=== PATIENT | female | born 1980 | race Caucasian/White ===

== ENCOUNTER 2017-05-30 17:25 | Inpatient (IN) | payer OTHER ==
[2017-05-30] MEDS ORDERED: Morphine 1 mg/ml preservative-free Inj(Duramorph) ONE (17:52)
[2017-05-30] MEDS ORDERED: Sodium Citrate/Citric Acid 15 ml Sol PO ONE (17:52)
[2017-05-30] MEDS ORDERED: ePHEDrine 50 mg/ml Inj ONE (17:52)
[2017-05-30] MEDS ORDERED: cefOXitin IV 2 gm in Dextrose 2 GM/50 ML BAG IVPB ONE ×2 (18:03→19:00)
[2017-05-30] MEDS ORDERED: Sodium Citrate/Citric Acid 15 ml Sol ONE (18:05)
[2017-05-30] MEDS ORDERED: cefOXitin IV 2 gm in Saline 2 GM/50 ML BAG IVPB ONE (18:06)
[2017-05-30] MEDS ORDERED: Oxytocin 20 units in LR 2,000 ML IV ONE (18:06)
[2017-05-30 18:07] LABS: BASO % 0.2 % (0.0-2.0); EOS # 0.1 K/uL (0.0-0.7); EOS % 0.4 % (0.0-4.0); HEMOGLOBIN 11.3 g/dL (11.0-16.0); LYMPH # 3.4 K/uL (1.0-4.3); LYMPH % 23.3 % (20.0-40.0); MEAN CORPUSCULAR HEMOGLOBIN 27.6 pg (27.0-31.0); MEAN CORPUSCULAR HGB CONC 32.8 g/dL (33.0-37.0); MEAN PLATELET VOLUME 9.8 fL (7.2-11.7); MONO # 0.9 K/uL (0.0-0.8); MONO % 6.5 % (0.0-10.0); NEUT # 10.1 K/uL (1.8-7.0); NEUT % 69.6 % (50.0-75.0); RBC 4.09 Mil/uL (3.80-5.20); RED CELL DISTRIBUTION WIDTH 16.7 % (11.5-14.5); WHITE BLOOD COUNT 14.5 K/uL (4.8-10.8)
[2017-05-30 18:13] LABS: SQUAMOUS EPITHIAL 1 /hpf (0-5); URINE BACTERIA RARE (<OCC); URINE BILIRUBIN NEGATIVE (NEGATIVE); URINE BLOOD NEGATIVE (NEGATIVE); URINE CLARITY Clear (Clear); URINE COLOR Yellow (YELLOW); URINE GLUCOSE (UA) NORMAL (Normal); URINE LEUKOCYTE ESTERASE NEG Leu/uL (Negative); URINE PROTEIN NEGATIVE (NEGATIVE); URINE UROBILINOGEN NORMAL mg/dL (0.2-1.0)
[2017-05-30 18:22] LABS: ALB/GLOB RATIO 0.8 (1.0-2.1); ALBUMIN 3.7 g/dL (3.5-5.0); CALCIUM 8.8 mg/dl (8.6-10.4); GFR AFRICAN-AMERICAN > 60; GFR NON-AFRICAN AMERICAN > 60
[2017-05-30 18:24] LABS: ALT/SGPT 21 U/L (9-52); AST/SGOT 36 U/L (14-36); BLOOD UREA NITROGEN 9 mg/dL (7-17)
[2017-05-30] MEDS ORDERED: Dextrose 5%/Lactated Ringer's 1,000 ML IV SCH (18:30)
[2017-05-30 18:51] LABS: HEPATITIS B SURFACE AG Negative (NEGATIVE)
--- NOTE | 2017-05-30 19:11 | OBADHP ---
Datetime: 05/30/2017 19:02 Admit Comment, IP Provider: chief complaint-plvic pressure and contractions HPI 36 y/o at 37.4 wga with c/o pelvic pressure and contractions.patient with c/o bleeding last night and again this am Patient denies loss of fluid course complicated by AMA PMH hypothyrodiism PSH csectionx2 OBGYN HX ; csectionx2; vbacx1 Social hx denies tobacco,alochol or illicit drug use Exam -see exam section A/P 36 y/o at 37.4wga in labor.Hx of 2 previous csection -admit -see orders -proceed to or as soon as OR ready Pelvic Type - PN: Adequate Extremities - PN: Normal Abdomen - PN: Normal Back - PN: Normal Lungs - PN: Normal Heart - PN: Normal Neurologic - PN: Normal General - PN: Normal Contraction Comments Provider: irregular ctx Gestation - Est Wks by US: 37.4 IP Hx Assessment: The History has been Reviewed and is Current Vital Signs Provider: Reviewed; Within Normal Limits IP Chief Complaint: Uterine contractions FHR Category Provider Fetus A: Category I Dilatation, Provider: 1 Effacement, Provider: 50 Station, Provider: -3 Genitourinary Exam: Normal DTRs - PN: Normal EGA AdmitDate IP: 37.4 IP Adm Impression: Term, intrauterine IP Admit Plan: Admit to unit
[2017-05-30] MEDS ORDERED: Oxycodone/Acetaminophen 5/325 mg Tab PO PRN ×2 (21:07)
--- NOTE | 2017-05-30 21:22 | OBDS ---
DELIVERY PERSONNEL Delivery Doctor: Laurent Fall MD Scrub Nurse: Sandra Gonzalez OBT Bd Special Education Teacher: Yana Millard RN Anesthesiologist: Jane Razo MD MATERNAL INFORMATION Delivery Anesthesia: Spinal Medications in Delivery: PITOCIN 20 UNITS Estimated Blood Loss (ml): 700 Placenta Cultured: No Maternal Complications: None RN Comments: previous c/s times 3 Provider Comments: repeat csection done see op report no complications LABOR SUMMARY EDC: 06/16/2017 00:00 No. Babies in Womb: 1 Attempted: No Labor Anesthesia: None LABOR INFORMATION Reason for Induction: Not Applicable Oxytocin: N/A Group B Beta Strep: Not Done Antibiotics # of Doses: 1 Antibiotics Time of Last Dose: 1909 Steroids Given: None Reason Steroids Not Administered: Not Applicable MEMBRANES Membranes Rupture Method: Artificial Rupture of Membranes: 05/30/2017 20:04 Length of Rupture (hrs): 0.00 Amniotic Fluid Color: Clear Amniotic Fluid Amount: Moderate Amniotic Fluid Odor: Normal STAGES OF LABOR Stage 3 hrs: 0 Stage 3 min: 1 VAGINAL DELIVERY Episiotomy: None CSECTION DELIVERY Primary Indication: > 2 Previous CSections Other Secondary Indication: early labor CSection Urgency: Elective CSection Incidence: Repeat Labor: Labor Elective: Elective CSection Incision: Lower Uterine Transverse Uterine Closure: Double-layer closure BABY A INFORMATION Infant Delivery Date/Time: 05/30/2017 20:04 Method of Delivery: Born in Route : No : N/A Forceps: N/A Vacuum Extraction: N/A Shoulder Dystocia : No SHOULDER DYSTOCIA BABY A Infant Delivery Date/Time: 05/30/2017 20:04 PRESENTATION/POSITION BABY A Presentation: Cephalic Cephalic Presentation: Vertex Vertex Position: Left Occipital Anterior Breech Presentation: N/A PLACENTA INFORMATION BABY A Placenta Delivery Time : 05/30/2017 20:05 Placenta Method of Delivery: Manual Removal Placenta Status: Delivered SCORES BABY A Heart Rate 1 min: >100 bpm Resp Effort 1 min: Good Cry Reflex Irritability 1 min: Cough or Sneeze or Pulls Away Muscle Tone 1 min: Active Motion Color 1 min: Body Cornlea, Extremities Blue SCORE 1 MIN: 9 Heart Rate 5 min: >100 bpm Resp Effort 5 min: Good Cry Reflex Irritability 5 min: Cough or Sneeze or Pulls Away Muscle Tone 5 min: Active Motion Color 5 min: Body Cornlea, Extremities Blue SCORE 5 MIN: 9 INFANT INFORMATION BABY A Gestational Age at Delivery: 38.0 Gestational Status: Term Outcome : Liveborn Condition : Stable Sex: Female IDENTIFICATION/MEDS BABY A ID Band Number: [id number] ID Band Location: Left Leg; Left Arm Sensor Applied: Yes Sensor Number: [id number] Sensor Location : Cord Clamp Erythromycin Given: Given Both Eyes WEIGHT/LENGTH BABY A Birthweight (gms): 2740 Infant Weight (lb): 6 Weight (oz): 1 Length Inches: 18.00 Length cms: 45.7 CORD INFORMATION BABY A No. Cord Vessels: 3 Nuchal Cord : N/A Cord Blood Taken: No Infant Suction: None ASSESSMENT BABY A Infant Complications: None Physical Findings at Delivery: Within Normal Limits Infant Respirations: Appears Normal Tool Keeper/ALS Called : No Infant Care By: Dr. Carias Transferred To: Nursery
[2017-05-30] MEDS ORDERED: DiphenhydrAMINE 50 mg/ml Inj IVP PRN (21:25)
--- NOTE | 2017-05-31 03:12 | OP ---
PROCEDURE DATE: 05/30/2017 PREOPERATIVE DIAGNOSES: 1. Previous section, in labor. 2. Term intrauterine . POSTOPERATIVE DIAGNOSES: 1. Previous section, in labor. 2. Term intrauterine . PROCEDURE PERFORMED: Repeat low transverse section. SURGEON: Frank Fall MD AUDIOVISUAL TECH: Dr. Ilana Arroyo. TYPE OF ANESTHESIA: Spinal. ANESTHESIOLOGIST: Dr. Razo. COMPLICATIONS: None. ESTIMATED BLOOD LOSS: 700 mL. FINDINGS: A female infant, in vertex presentation with Apgars of 9 at 1 minute of life and 9 at 5 minutes of life. Normal tubes and ovaries bilaterally. SPECIMEN: Placenta and cord blood. PROCEDURE IN DETAIL: After informed consent was obtained, the patient was taken to the operating room, where spinal anesthesia was administered by the anesthesia team. She was thereafter placed in dorsal supine position with a leftward tilt. A Allred catheter was confirmed to be draining clear urine. The patient was then prepped and draped in the usual sterile manner. In the previous Pfannenstiel skin incision scar, an incision was made with the help of the scalpel, and this was carried down to the underlying area of the fascia with the help of the Bovie. The fascia was then incised in the midline and the incision extended laterally with the help of Bovie as well. The superior aspect of the fascial incision was grasped with Brianna clamps to elevate it and the underlying rectus muscle dissected off. Attention was then turned to the inferior aspect of the fascial incision, which in a similar fashion was grasped with Brianna clamp to elevate it and the underlying rectus muscle was dissected off. The rectus muscle was in the midline. Bleeding was noted from the rectus muscle and this was suture ligated with 2-0 chromic. Adequate hemostasis was noted. The peritoneum was then picked up with hemostatic clamps and entered sharply with Metzenbaum scissors. The peritoneal incision was extended superiorly and inferiorly with good visualization of the bladder. The bladder blade was then inserted and the vesicouterine peritoneum was identified. A transverse incision was made over the vesicouterine peritoneum with the help of Metzenbaum scissors and by picking it up with pickups. The incision was extended laterally and a bladder flap was created sharply. A bladder blade was then reinserted and the lower uterine segment identified. A transverse incision was made over the lower uterine segment. Incision was bluntly stretched. The membranes were ruptured and the infant's head was then delivered atraumatically, followed by the body and the shoulders. The cord was then clamped and cut and the was handed over to the waiting digital watch assembler. Cord blood was collected. The placenta was then manually removed. The uterus was exteriorized and was cleared of all clots and debris. The uterine incision was repaired with 0 Polysorb in a running locked fashion. A second layer of same suture was used to imbricate the first layer and also to obtain hemostasis. Adequate hemostasis was noted from the uterine incision repair site. A small 5 mm x 5 mm hematoma was noted near the left uterine incision repair site, and this was observed for 5 minutes and it was not noted to be expanded. Thereafter, the cul-de-sac and the pelvis were irrigated and suctioned. The uterus was returned to the patient's abdomen. Once again, the previously noted hematoma was inspected and found to be of thge same size Adequate hemostasis was noted from the uterine incision repair site. Interceed was thereafter placed over the uterine incision repair site. The peritoneum was thereafter closed with 2-0 Polysorb in a running fashion. The muscle layer was reapproximated with 2-0 Polysorb via mattress suture. The fascia was closed with 0-Vicryl in a running fashion. The subcutaneous tissue was reapproximated with 2-0 Polysorb in a running fashion. The skin was closed with 3-0 Monocryl in a subcuticular manner. Steri-Strip was thereafter applied. The patient was thereafter cleaned and taken to the recovery room in stable condition. The Allred catheter was left in situ for postop bladder drainage. The sponge, lap, needle, and instrument counts were correct x3 as reported to me. Frank Fall MD MADDIE
[2017-05-31] MEDS ORDERED: cefOXitin IV 2 gm in Saline 2 GM/50 ML BAG IVPB ONE (04:12)
[2017-05-31] MEDS: cefOXitin IV 2 gm in Dextrose 2 GM/50 ML BAG IVPB SCH ×2 (04:17→14:52)
[2017-05-31] MEDS: Simethicone 80 mg Chewtab PO SCH ×4 (10:19→21:56)
[2017-05-31 11:29] LABS: BASO % 0.2 % (0.0-2.0); EOS # 0.1 K/uL (0.0-0.7); EOS % 0.8 % (0.0-4.0); LYMPH # 1.5 K/uL (1.0-4.3); LYMPH % 11.6 % (20.0-40.0); MEAN CELL VOLUME 84.5 fL (81.0-99.0); MEAN CORPUSCULAR HEMOGLOBIN 27.8 pg (27.0-31.0); MEAN CORPUSCULAR HGB CONC 32.9 g/dL (33.0-37.0); MEAN PLATELET VOLUME 10.1 fL (7.2-11.7); MONO # 0.6 K/uL (0.0-0.8); MONO % 4.8 % (0.0-10.0); NEUT # 10.8 K/uL (1.8-7.0); NEUT % 82.6 % (50.0-75.0); RBC 3.6 Mil/uL (3.80-5.20); RED CELL DISTRIBUTION WIDTH 16.3 % (11.5-14.5)
[2017-06-01 00:18] VITALS: O2SAT 98
[2017-06-01] MEDS: Simethicone 80 mg Chewtab PO SCH ×5 (09:07→21:34)
--- NOTE | 2017-06-01 21:06 | OBDCSUM ---
Datetime: 06/01/2017 21:04 Discharged to, Provider: Home Follow up at, Provider: Dr SKINNER Disch Instr Diet: Regular Discharge Instructions, Provider: Routine instructions given Discharge Diagnosis, Provider: Term Delivered Discharge Time: 07/02/2017 09:00 Follow up in weeks, Provider: 2 WEEKS Disch Referrals: None Disch Activity Restrictions: No exercising; No lifting; No driving; No sexual activity; Nothing in v [facility] [place] [facility], tampons, douche Discharge Comment, Provider: CALL THE OFFICVE IF YOU HAVE FEVER, SEVERE PAIN, HEAVY BLEEDING, ANY RE DNESS OR DISCHARGE FROM INCISION OR ANY OTHER PROBLEMS Discharge Diagnosis Prov Other: s/p csection
--- NOTE | 2017-06-01 21:06 | OBPPN ---
Datetime: 06/01/2017 21:02 PP Pain Prov: Within normal limits PP Nausea Prov: Denies PP Flatus Prov: Yes PP BM Prov: Yes PP Heart Prov: Normal PP Lungs Prov: Normal PP Abdomen/Uterus Prov: Normal PP Vulva/Perineum Prov: Normal PP CVA Tenderness Prov: Normal PP Extremities Prov: Normal PP C/S Incision Prov: Normal PP Progress Prov: Normal PP Impression Prov: Normal progression PP Plan Prov: Continue present management PP Progress Note Prov: S-patient reports adequatre pain control.denies nausea, vomiting, headache, c hest pain, shortness of breath, numbness or tingling in hands and feet O-VSS Afebrile Abdoemn soft and nontender Fundus firm and below umbilicus Incision clean,d ry and intact Extremities no calf tenderness A/P Patient s/p csection POD 2 doingw ell -continue routine post op care -discharge in am Vital Signs Provider PP: Reviewed; Within Normal Limits
[2017-06-02 08:03] VITALS: BP 105/70; TEMP 97.3
[2017-06-02] MEDS: Simethicone 80 mg Chewtab PO SCH (09:07)
[2017-06-02 19:26] VITALS: PULSE 138; RESP 40
== END 2017-06-02 15:26 | disposition home or self-care (01) | DRG 766 ==
LOC: C.EROB 17:25 → C.4D 17:43 → C.4M 23:29
PROVIDERS: ADMIT Student in an Organized Health Care Education/Training Program; ATTEND Student in an Organized Health Care Education/Training Program
PROC: 10D00Z1 Extraction of Products of Conception, Low, Open Approach (ICD-10-PCS; principal; 2017-05-30)
DX: O34.211 Maternal care for low transverse scar from previous cesarean delivery (principal); Z3A.38 38 weeks gestation of pregnancy; Z37.0 Single live birth